=== PATIENT | female | born 1995 | race Two or more races ===

== ENCOUNTER 2021-02-16 10:27 | Inpatient (IN) | payer BC ==
[2021-02-16] MEDS ORDERED: Misoprostol 25 MCG (1/4 of 100 MCG) Tab VAG PRN (17:08)
[2021-02-16] MEDS ORDERED: Sodium Chloride 0.9% 10 ML Syringe FLUSH PRN (17:08)
[2021-02-16] MEDS ORDERED: Nalbuphine 10 MG/1 ML Vial IVPUSH PRN (17:08)
[2021-02-16] MEDS ORDERED: Ondansetron 4 MG/2 ML SDV IVPUSH PRN ×2 (17:08→20:47)
--- NOTE | 2021-02-16 17:08 | PCM.LDHP ---
L&D History of Present Illness - General Date of Service: 02/16/21 Admit Problem/Dx: Admission Diagnosis/Problem Admission Diagnosis/Problem Source of Information: Patient History Limitations: Reports: No Limitations - History of Present Illness Introduction:: Patient is a 25 y/o at 37 4/7 wks who presents for IOL for concerns of cholestasis of . Patient in clinic earlier today and noted for last week or so has had itching located on her soles. No other changes to explain symptoms. Reviewed concerns and did desire to proceed with IOL. Otherwise doing well currently - Related Data Allergies/Adverse Reactions: Allergies Allergy/AdvReac Type Severity Reaction Status Date / Time No Known Allergies Allergy Verified 02/16/21 18:14 Home Medications: Home Meds No122/Iron/Folic Acid [ Multi Tablet] 1 each PO DAILY 02/16/21 [History] Sertraline [Zoloft] 50 mg PO BEDTIME 02/16/21 [History] Past Medical History Psychiatric History: Reports: Anxiety - Past Surgical History HEENT Surgical History: Reports: Oral Surgery Social & Family History - Tobacco Use Tobacco Use Status *Q: Never Tobacco User - Alcohol Use Alcohol Use History: No - Recreational Drug Use Recreational Drug Use: No H&P Review of Systems - Review of Systems: Review Of Systems: See Below General: Reports: No Symptoms Pulmonary: Reports: No Symptoms Cardiovascular: Reports: No Symptoms Gastrointestinal: Reports: No Symptoms Genitourinary: Reports: No Symptoms Musculoskeletal: Reports: No Symptoms Skin: Reports: Pruritis (solar) Neurological: Reports: No Symptoms L&D Exam - Exam Exam: See Below - OB Specific Contraction Intensity: Irritability Movement: Active Heart Tones: Present Heart Tones per Min: 135 Heart Rate (FHR) Variability: Moderate (6-25 bmp) Presentation: Vertex - Nelson Score Nelson Score Cervix Position: Midposition Nelson Score Consistency: Medium Nelson Score Effacement: 51-70% Nelson Score Dilation: 3-4 cm Nelson Score Infant's Station: -2 Nelson Score Total: 7 - Exam General: Alert, Oriented, Cooperative Lungs: Clear to Auscultation, Normal Respiratory Effort Cardiovascular: Regular Rhythm GI/Abdominal Exam: Soft, Non-Tender Genitourinary: Normal external exam Back Exam: Normal Inspection Extremities: Normal Inspection Skin: Warm, Dry, Intact - Patient Data Result Diagrams: 02/16/21 17:30 02/16/21 17:30 - Problem List (1) Solar pruritus SNOMED Code(s): 284590463 ICD Code: L29.8 - OTHER PRURITUS Status: Acute Current Visit: Yes (2) 37 weeks gestation of SNOMED Code(s): 12505541 ICD Code: Z3A.37 - 37 WEEKS GESTATION OF Status: Acute Current Visit: Yes Problem List Initiated/Reviewed/Updated: Yes Assessment/Plan Comment:: Patient being induced for concerns of cholestasis. Bile acids drawn along with CMP Routine labs done GBS negative Cytotec to start IOL. Likely transition to pitocin after 1st dose Pain management per patient preference Anticipate
[2021-02-16] MEDS ORDERED: Oxytocin/Lactated Ringers 10 UNIT/1,000 ML BAG IV SCH ×2 (17:15)
[2021-02-16] MEDS ORDERED: fentaNYL 100 MCG/2 ML SDV EPIDUR PRN (20:47)
[2021-02-16] MEDS ORDERED: ePHEDrine 50 MG/ML SDV IVPUSH PRN (20:47)
[2021-02-16] MEDS ORDERED: Bupivacaine/fentaNYL/NS 100 ML Bag EPIDUR SCH (21:00)
--- NOTE | 2021-02-16 21:17 | PCM.PREANE ---
Preanesthetic Assessment - Procedure Proposed Procedure: Epidural - Anesthesia/Transfusion/Family Hx Anesthesia History: Prior Anesthesia Without Reaction Family History of Anesthesia Reaction: No Transfusion History: No Prior Transfusion(s) Intubation History: Unknown - Review of Systems General: No Symptoms Pulmonary: No Symptoms Cardiovascular: No Symptoms Gastrointestinal: No Symptoms Neurological: No Symptoms Other: Reports: None, Depression, Anxiety - Physical Assessment NPO Status Date: 02/16/21 NPO Status Time: 12:00 Vital Signs: Last Vital Signs Temp 37.5 C 02/16/21 19:45 Pulse 78 02/16/21 19:45 Resp 16 02/16/21 19:45 BP 111/75 02/16/21 19:45 Pulse Ox 97 02/16/21 19:45 Height: 1.57 m Weight: 63.503 kg ASA Class: 2 Mental Status: Alert & Oriented x3 Airway Class: Mallampati = 2 Dentition: Reports: Normal Dentition, Caries Thyro-Mental Finger Breadths: 3 Mouth Opening Finger Breadths: 3 ROM/Head Extension: Full Lungs: Clear to Auscultation, Normal Respiratory Effort Cardiovascular: Regular Rate, Regular Rhythm, No Murmurs - Lab Values: Laboratory Last Values WBC 6.88 K/mm3 (3.98-10.04) 02/16/21 17:30 RBC 3.88 M/mm3 (3.98-5.22) L 02/16/21 17:30 Hgb 11.3 gm/dl (11.2-15.7) 02/16/21 17:30 Hct 34.6 % (34.1-44.9) 02/16/21 17:30 MCV 89.2 fl (79.4-94.8) 02/16/21 17:30 MCH 29.1 pg (25.6-32.2) 02/16/21 17:30 MCHC 32.7 g/dl (32.2-35.5) 02/16/21 17:30 RDW Std Deviation 43.1 fL (36.4-46.3) 02/16/21 17:30 Plt Count 147 K/mm3 (182-369) L 02/16/21 17:30 MPV 12.0 fl (9.4-12.3) 02/16/21 17:30 Sodium 138 mEq/L (136-145) 02/16/21 17:30 Potassium 3.8 mEq/L (3.5-5.1) 02/16/21 17:30 Chloride 104 mEq/L (98-107) 02/16/21 17:30 Carbon Dioxide 20 mEq/L (21-32) L 02/16/21 17:30 Anion Gap 17.8 (5-15) H 02/16/21 17:30 BUN 8 mg/dL (7-18) 02/16/21 17:30 Creatinine 0.6 mg/dL (0.55-1.02) 02/16/21 17:30 Est Cr Clr Drug Dosing TNP 02/16/21 17:30 Estimated GFR (MDRD) > 60 mL/min (>60) 02/16/21 17:30 BUN/Creatinine Ratio 13.3 (14-18) L 02/16/21 17:30 Glucose 81 mg/dL (70-99) 02/16/21 17:30 Calcium 8.9 mg/dL (8.5-10.1) 02/16/21 17:30 Total Bilirubin 0.2 mg/dL (0.2-1.0) 02/16/21 17:30 AST 25 U/L (15-37) 02/16/21 17:30 ALT 26 U/L (14-59) 02/16/21 17:30 Alkaline Phosphatase 239 U/L (46-116) H 02/16/21 17:30 Total Protein 7.1 g/dl (6.4-8.2) 02/16/21 17:30 Albumin 2.7 g/dl (3.4-5.0) L 02/16/21 17:30 Globulin 4.4 gm/dL 02/16/21 17:30 Albumin/Globulin Ratio 0.6 (1-2) L 02/16/21 17:30 SARS-CoV-2 RNA (GORGE) Negative (NEGATIVE) 02/16/21 18:25 Blood Type O POSITIVE 02/16/21 17:30 Gel Antibody Screen Negative 02/16/21 17:30 Above labs reviewed and noted and within acceptable ranges to proceed with epidural. - Allergies Allergies/Adverse Reactions: Allergies Allergy/AdvReac Type Severity Reaction Status Date / Time No Known Allergies Allergy Verified 02/16/21 18:14 - Anesthesia Plan Pre-Op Medication Ordered: None - Acknowledgements Anesthesia Type Planned: Epidural Pt an Appropriate Candidate for the Planned Anesthesia: Yes Alternatives and Risks of Anesthesia Discussed w Pt/Guardian: Yes Pt/Guardian Understands and Agrees with Anesthesia Plan: Yes PreAnesthesia Questionnaire - HOME MEDS Home Medications: Home Meds Sertraline [Zoloft] 50 mg PO BEDTIME 02/16/21 [History] - CURRENT (IN HOUSE) MEDS Current Meds: Current Medications Ephedrine Sulfate (Ephedrine 50 Mg/Ml Sdv) 5 mg IVPUSH ASDIRECTED PRN PRN Reason: Hypotension Fentanyl (Fentanyl 100 Mcg/2 Ml Sdv) 100 mcg EPIDUR Q3H PRN PRN Reason: Pain Fentanyl/Bupivacaine HCl (Bupivacaine/Fentanyl/Ns 100 Ml Bag) 100 ml EPIDUR ASDIRECTED JESSICA Oxytocin/Lactated Ringer's (Pitocin In Lr 10 Units/1,000 Ml) 10 unit in 1,000 mls @ 12 mls/hr IV TITRATE JESSICA; Protocol Oxytocin/Lactated Ringer's (Pitocin In Lr 10 Units/1,000 Ml) 10 unit in 1,000 mls @ 500 mls/hr IV .CONTINUOUS JESSICA Lactated Ringer's (Ringers, Lactated) 1,000 mls @ 40 mls/hr IV ASDIRECTED JESSICA Miscellaneous Medication (Phenylephrine Hcl In 0.9% Nacl 1 Mg/10 Ml Syringe) 0.1 mg IVPUSH Q10M PRN PRN Reason: Hypotension Misoprostol (Misoprostol 25 Mcg (1/4 Of 100 Mcg) Tab) 25 mcg VAG Q4H PRN PRN Reason: cervical ripening Last Admin: 02/16/21 18:40 Dose: 25 mcg Documented by: Nalbuphine HCl (Nalbuphine 10 Mg/1 Ml Vial) 10 mg IVPUSH Q2H PRN PRN Reason: Pain Ondansetron HCl (Ondansetron 4 Mg/2 Ml Sdv) 4 mg IVPUSH Q4H PRN PRN Reason: Nausea/Vomiting Ondansetron HCl (Ondansetron 4 Mg/2 Ml Sdv) 4 mg IVPUSH ONETIME PRN PRN Reason: Nausea/Vomiting Sodium Chloride (Sodium Chloride 0.9% 10 Ml Syringe) 10 ml FLUSH ASDIRECTED PRN PRN Reason: Keep Vein Open
[2021-02-17] MEDS ORDERED: Bupivacaine 0.25% 10 ML SDV ONE
[2021-02-17] MEDS: Lactated Ringers 1,000 ML IV SCH ×3 (03:25→05:13)
--- NOTE | 2021-02-17 06:40 | PCM.PNLD ---
Labor Progress Note - VS & Meds Vital Signs: Last Vital Signs Temp 37.5 C 02/16/21 19:45 Pulse 78 02/16/21 19:45 Resp 16 02/16/21 19:45 BP 111/75 02/16/21 19:45 Pulse Ox 97 02/16/21 19:45 Active Medications: Current Medications Ephedrine Sulfate (Ephedrine 50 Mg/Ml Sdv) 5 mg IVPUSH ASDIRECTED PRN PRN Reason: Hypotension Fentanyl (Fentanyl 100 Mcg/2 Ml Sdv) 100 mcg EPIDUR Q3H PRN PRN Reason: Pain Last Admin: 02/17/21 03:58 Dose: 100 mcg Documented by: Fentanyl/Bupivacaine HCl (Bupivacaine/Fentanyl/Ns 100 Ml Bag) 100 ml EPIDUR ASDIRECTED JESSICA Last Admin: 02/17/21 03:58 Dose: 100 ml Documented by: Oxytocin/Lactated Ringer's (Pitocin In Lr 10 Units/1,000 Ml) 10 unit in 1,000 mls @ 12 mls/hr IV TITRATE JESSICA; Protocol Last Titration: 02/17/21 06:15 Dose: 8 munits/min, 48 mls/hr Documented by: Oxytocin/Lactated Ringer's (Pitocin In Lr 10 Units/1,000 Ml) 10 unit in 1,000 mls @ 500 mls/hr IV .CONTINUOUS JESSICA Lactated Ringer's (Ringers, Lactated) 1,000 mls @ 40 mls/hr IV ASDIRECTED JESSICA Last Admin: 02/17/21 05:13 Dose: 40 mls/hr Documented by: Miscellaneous Medication (Phenylephrine Hcl In 0.9% Nacl 1 Mg/10 Ml Syringe) 0.1 mg IVPUSH Q10M PRN PRN Reason: Hypotension Misoprostol (Misoprostol 25 Mcg (1/4 Of 100 Mcg) Tab) 25 mcg VAG Q4H PRN PRN Reason: cervical ripening Last Admin: 02/16/21 18:40 Dose: 25 mcg Documented by: Nalbuphine HCl (Nalbuphine 10 Mg/1 Ml Vial) 10 mg IVPUSH Q2H PRN PRN Reason: Pain Ondansetron HCl (Ondansetron 4 Mg/2 Ml Sdv) 4 mg IVPUSH Q4H PRN PRN Reason: Nausea/Vomiting Ondansetron HCl (Ondansetron 4 Mg/2 Ml Sdv) 4 mg IVPUSH ONETIME PRN PRN Reason: Nausea/Vomiting Sodium Chloride (Sodium Chloride 0.9% 10 Ml Syringe) 10 ml FLUSH ASDIRECTED PRN PRN Reason: Keep Vein Open - Uterine Contractions Uterine Monitoring Mode: External [place] Contraction Intensity: Moderate to Strong Uterine Resting Tone: Soft - Monitoring Monitor Mode: External Ultrasound Heart Rate (FHR) Baseline: 135 Heart Rate (FHR) Variability: Moderate (6-25 bmp) Accelerations: Present, 15x15 Decelerations: None Strip Review: Category I - Vaginal Exam Dilation (cm): 4-5 Effacement (Percent): 80 Station: -2 Cervical Position: Midposition - Labor Progress (Free Text) Labor Progress: Doing well. Received 1 dose of cytotec yesterday PM at 1845. Then was edwin frequently on own. In early AM hours was started on pitocin. Currently at 8. Comfortable with epidural in place. AROM just performed. Continue present management
--- NOTE | 2021-02-17 10:44 | PCM.DEL ---
L & D Note - General Info Date of Service: 02/17/21 - Delivery Note Labor: Induced by ARM, Induced by Oxytocin Cervical Ripening Method: Misoprostil Delivery Outcome: Livebirth Delivery Method: Spontaneous Vaginal Delivery-Single Infant Delivery Mode: Spontaneous Presentation: Left Occiput Anterior (GREGG) Nuchal Cord: None Anesthesia Type: Epidural Amniotic Fluid Description: Clear Episiotomy Type: None Laceration: 2nd Degree, Perineal Suture type: Vicryl Suture size: 2-0 Placenta: Intact, Spontaneous Cord: 3 Vessels Estimated Blood Loss: 200 Resuscitation Needed: Yes [place]: Bulb Syringe, Stimulated, Warmed, [place] Used Delivery Comments (Free Text/Narrative):: Patient found to be complete and began pushing. With maternal pushing effort head delivered from GREGG presentation. No nuchal cord present. With gentle downward traction the shoulders and body delivered. Infant placed on maternal abdomen. Cord clamped and cut. Cord blood obtained. Placenta allowed time to separate and expelled intact. Inspection of perineum showed a 2nd degree laceration which was repaired with a 2-0 Vicryl in the typical fashion - General Info Date of Service: 02/17/21 - Patient Data Vitals - Most Recent: Last Vital Signs Temp 37.5 C 02/16/21 19:45 Pulse 78 02/16/21 19:45 Resp 16 02/16/21 19:45 BP 111/75 02/16/21 19:45 Pulse Ox 97 02/16/21 19:45 Weight - Most Recent: 63.503 kg I&O - Last 24 Hours: Intake & Output 02/16/21 02/17/21 02/17/21 22:59 06:59 14:59 Intake Total 1999 Balance 1999 - Problem List & Annotations (1) Solar pruritus SNOMED Code(s): 606792074 Code(s): L29.8 - OTHER PRURITUS Status: Acute Current Visit: Yes (2) 37 weeks gestation of SNOMED Code(s): 87673550 Code(s): Z3A.37 - 37 WEEKS GESTATION OF Status: Acute Current Visit: Yes (3) Vaginal delivery SNOMED Code(s): 702151410 Code(s): O80 - ENCOUNTER FOR FULL-TERM UNCOMPLICATED DELIVERY Status: Acute Current Visit: Yes - Problem List Review Problem List Initiated/Reviewed/Updated: Yes - My Orders Last 24 Hours: My Active Orders 02/16/21 Dinner Regular Diet [DIET] 02/16/21 17:08 Patient Status [ADT] Routine Communication Order [RC] ASDIRECTED Communication Order [RC] ASDIRECTED Communication Order [RC] ASDIRECTED Notify Provider [RC] ASDIRECTED Notify Provider [RC] PRN Up ad Lynnette [RC] ASDIRECTED Nalbuphine [Nubain] 10 mg IVPUSH Q2H PRN Ondansetron [Zofran] 4 mg IVPUSH Q4H PRN Sodium Chloride 0.9% [Saline Flush] 10 ml FLUSH ASDIRECTED PRN miSOPROStoL [Cytotec] 25 mcg VAG Q4H PRN Electronic Heart Tones Internal [WOMSER] Per Unit Routine Peripheral IV Insertion Adult [OM.PC] Routine Resuscitation Status Routine 02/16/21 17:15 Lactated Ringers [Ringers, Lactated] 1,000 ml IV ASDIRECTED Oxytocin/Lactated Ringers [Pitocin in LR 10 Units/1,000 ML] 10 unit in 1,000 ml IV .CONTINUOUS Oxytocin/Lactated Ringers [Pitocin in LR 10 Units/1,000 ML] 10 unit in 1,000 ml IV TITRATE Medication Administration Instruction [OM.PC] ASDIRECTED 02/16/21 17:30 BILE ACIDS [REF] Routine HEP C VIRUS AB [REF] Routine - Assessment Assessment:: PPD#0 - Plan Plan:: * Routine cares * Breast feeding * Discharge home in 1-2 days
[2021-02-17] MEDS ORDERED: Acetaminophen 325 MG Tab PO PRN (12:07)
[2021-02-17] MEDS ORDERED: Docusate Sodium 100 MG Cap PO PRN (12:07)
[2021-02-17] MEDS: Ibuprofen 600 MG Tab PO PRN ×2 (13:28→21:46)
[2021-02-17] MEDS: Witch Hazel Medicated Pads 40/Jar TOP PRN (13:29)
[2021-02-17] MEDS: Benzocaine/Menthol 20%-0.5% Spray 56 GM Canister TOP PRN (13:29)
--- NOTE | 2021-02-18 06:44 | PCM.PNPP ---
- General Info Date of Service: 02/18/21 Functional Status: Reports: Pain Controlled, Tolerating Diet, Ambulating, Urinating - Review of Systems General: Reports: No Symptoms Pulmonary: Reports: No Symptoms Cardiovascular: Reports: No Symptoms Gastrointestinal: Reports: No Symptoms Genitourinary: Reports: No Symptoms Musculoskeletal: Reports: No Symptoms Neurological: Reports: No Symptoms - General Info Date of Service: 02/18/21 - Patient Data Vital Signs - Most Recent: Last Vital Signs Temp 36.6 C 02/18/21 03:21 Pulse 59 L 02/18/21 03:21 Resp 14 02/18/21 03:21 BP 108/72 02/18/21 03:21 Pulse Ox 98 02/18/21 03:21 Weight - Most Recent: 63.503 kg I&O - Last 24 Hours: Intake & Output 02/17/21 02/17/21 02/18/21 14:59 22:59 06:59 Intake Total 3360 150 Output Total 110 237 Balance 2276 -87 Med Orders - Current: Current Medications Acetaminophen (Acetaminophen 325 Mg Tab) 650 mg PO Q4H PRN PRN Reason: mild pain or fever Benzocaine/Menthol (Benzocaine/Menthol 20%-0.5% Connell 56 Gm Canister) 0 gm TOP ASDIRECTED PRN PRN Reason: Perineal Comfort Measure Last Admin: 02/17/21 13:29 Dose: 1 canister Documented by: Docusate Sodium (Docusate Sodium 100 Mg Cap) 100 mg PO BID PRN PRN Reason: Constipation Ibuprofen (Ibuprofen 600 Mg Tab) 600 mg PO Q6H PRN PRN Reason: Mild pain or fever Last Admin: 02/17/21 21:46 Dose: 600 mg Documented by: Allen [place]en[place] (Allen [place] Medicated Pads 40/Jar) 1 pad TOP ASDIRECTED PRN PRN Reason: Perineal Comfort Measure Last Admin: 02/17/21 13:29 Dose: 1 tub Documented by: Discontinued Medications Ephedrine Sulfate (Ephedrine 50 Mg/Ml Sdv) 5 mg IVPUSH ASDIRECTED PRN PRN Reason: Hypotension Fentanyl (Fentanyl 100 Mcg/2 Ml Sdv) 100 mcg EPIDUR Q3H PRN PRN Reason: Pain Last Admin: 02/17/21 03:58 Dose: 100 mcg Documented by: Fentanyl/Bupivacaine HCl (Bupivacaine/Fentanyl/Ns 100 Ml Bag) 100 ml EPIDUR ASDIRECTED JESSICA Last Admin: 02/17/21 03:58 Dose: 100 ml Documented by: Oxytocin/Lactated Ringer's (Pitocin In Lr 10 Units/1,000 Ml) 10 unit in 1,000 mls @ 12 mls/hr IV TITRATE JESSICA; Protocol Last Titration: 02/17/21 08:10 Dose: 8 munits/min, 48 mls/hr Documented by: Oxytocin/Lactated Ringer's (Pitocin In Lr 10 Units/1,000 Ml) 10 unit in 1,000 mls @ 500 mls/hr IV .CONTINUOUS JESSICA Lactated Ringer's (Ringers, Lactated) 1,000 mls @ 40 mls/hr IV ASDIRECTED JESSICA Last Admin: 02/17/21 05:13 Dose: 40 mls/hr Documented by: Miscellaneous Medication (Phenylephrine Hcl In 0.9% Nacl 1 Mg/10 Ml Syringe) 0.1 mg IVPUSH Q10M PRN PRN Reason: Hypotension Misoprostol (Misoprostol 25 Mcg (1/4 Of 100 Mcg) Tab) 25 mcg VAG Q4H PRN PRN Reason: cervical ripening Last Admin: 02/16/21 18:40 Dose: 25 mcg Documented by: Nalbuphine HCl (Nalbuphine 10 Mg/1 Ml Vial) 10 mg IVPUSH Q2H PRN PRN Reason: Pain Ondansetron HCl (Ondansetron 4 Mg/2 Ml Sdv) 4 mg IVPUSH Q4H PRN PRN Reason: Nausea/Vomiting Ondansetron HCl (Ondansetron 4 Mg/2 Ml Sdv) 4 mg IVPUSH ONETIME PRN PRN Reason: Nausea/Vomiting Sodium Chloride (Sodium Chloride 0.9% 10 Ml Syringe) 10 ml FLUSH ASDIRECTED PRN PRN Reason: Keep Vein Open - Interaction Infant Disposition, : [place] in Room with Family Interaction: Holding Feeding: Breastfed Infant; Nursed Well Support Person: - Recovery Exam Fundal Tone: Firm Fundal Level: At Umbilicus Fundal Placement: Midline Lochia Amount: Small Lochia Color: Rubra/Red Perineum Description: Other (see below) Other Perinuem Description: 2nd degree laceration with repair Episiotomy/Laceration: Approximated Bladder Status: Voiding Urinary Elimination: Voided - Exam General: Alert, Oriented, Cooperative GI/Abdominal Exam: Soft, Non-Tender - Problem List & Annotations (1) Solar pruritus SNOMED Code(s): 867792437 Code(s): L29.8 - OTHER PRURITUS Status: Acute Current Visit: Yes (2) 37 weeks gestation of SNOMED Code(s): 99395862 Code(s): Z3A.37 - 37 WEEKS GESTATION OF Status: Acute Current Visit: Yes (3) Vaginal delivery SNOMED Code(s): 199160429 Code(s): O80 - ENCOUNTER FOR FULL-TERM UNCOMPLICATED DELIVERY Status: Acute Current Visit: Yes - Problem List Review Problem List Initiated/Reviewed/Updated: Yes - My Orders Last 24 Hours: My Active Orders 02/17/21 Lunch Regular Diet [DIET] 02/17/21 12:07 Acetaminophen [TylenoL] 650 mg PO Q4H PRN Benzocaine/Menthol [Dermoplast Pain Relief Connell] See Dose Instructions TOP ASDIRECTED PRN Docusate Sodium [Colace] 100 mg PO BID PRN Ibuprofen [Motrin] 600 mg PO Q6H PRN witch Valeria [Tucks] 1 pad TOP ASDIRECTED PRN Heat Therapy [OM.PC] PRN 02/17/21 12:07 Activity as Tolerated [RC] PER UNIT ROUTINE Vital Signs [RC] ,,15,21 Assess Lochia [WOMSER] Per Unit Routine Assess Uterine Involution [WOMSER] Per Unit Routine Breast Pump [WOMSER] Per Unit Routine Ice Therapy [OM.PC] Per Unit Routine Perineal Care [OM.PC] Per Unit Routine Peripheral IV Discontinue [OM.PC] Routine Sitz Bath [OM.PC] Per Unit Routine 02/18/21 12:07 Heat Therapy [OM.PC] PRN - Assessment Assessment:: PPD#1 - Plan Plan:: * Routine cares * Breast feeding * Discharge home tomorrow
--- NOTE | 2021-02-18 07:31 | PCM48HPAN ---
Post Anesthesia Note - EVALUATION WITHIN 48HRS OF ANESTHETIC Vital Signs in Normal Range: Yes Patient Participated in Evaluation: Yes Respiratory Function Stable: Yes Airway Patent: Yes Cardiovascular Function Stable: Yes Hydration Status Stable: Yes Pain Control Satisfactory: Yes Nausea and Vomiting Control Satisfactory: Yes Mental Status Recovered: Yes Vital Signs: Last Vital Signs Temp 97.9 F 02/18/21 03:21 Pulse 59 L 02/18/21 03:21 Resp 14 02/18/21 03:21 BP 108/72 02/18/21 03:21 Pulse Ox 98 02/18/21 03:21
[2021-02-18] MEDS: Ibuprofen 600 MG Tab PO PRN ×2 (09:05→20:21)
[2021-02-18] MEDS: Witch Hazel Medicated Pads 40/Jar TOP PRN (15:30)
--- NOTE | 2021-02-19 06:24 | PCM.PNPP ---
- General Info Date of Service: 02/19/21 Functional Status: Reports: Pain Controlled, Tolerating Diet, Urinating - Review of Systems General: Reports: No Symptoms Pulmonary: Reports: No Symptoms Cardiovascular: Reports: No Symptoms Gastrointestinal: Reports: No Symptoms Genitourinary: Reports: No Symptoms Musculoskeletal: Reports: No Symptoms Neurological: Reports: No Symptoms - Patient Data Vital Signs - Most Recent: Last Vital Signs Temp 36.4 C 02/19/21 04:02 Pulse 67 02/19/21 04:02 Resp 14 02/19/21 04:02 BP 107/73 02/19/21 04:02 Pulse Ox 98 02/19/21 04:02 Weight - Most Recent: 63.503 kg I&O - Last 24 Hours: Intake & Output 02/18/21 02/18/21 02/19/21 14:59 22:59 06:59 Intake Total 120 120 Balance 120 120 Med Orders - Current: Current Medications Acetaminophen (Acetaminophen 325 Mg Tab) 650 mg PO Q4H PRN PRN Reason: mild pain or fever Benzocaine/Menthol (Benzocaine/Menthol 20%-0.5% [place] 56 Gm Canister) 0 gm TOP ASDIRECTED PRN PRN Reason: Perineal Comfort Measure Last Admin: 02/17/21 13:29 Dose: 1 canister Documented by: Docusate Sodium (Docusate Sodium 100 Mg Cap) 100 mg PO BID PRN PRN Reason: Constipation Ibuprofen (Ibuprofen 600 Mg Tab) 600 mg PO Q6H PRN PRN Reason: Mild pain or fever Last Admin: 02/18/21 20:21 Dose: 600 mg Documented by: Allen [place]en[place] (Allen [place] Medicated Pads 40/Jar) 1 pad TOP ASDIRECTED PRN PRN Reason: Perineal Comfort Measure Last Admin: 02/18/21 15:30 Dose: 1 tub Documented by: Discontinued Medications Ephedrine Sulfate (Ephedrine 50 Mg/Ml Sdv) 5 mg IVPUSH ASDIRECTED PRN PRN Reason: Hypotension Fentanyl (Fentanyl 100 Mcg/2 Ml Sdv) 100 mcg EPIDUR Q3H PRN PRN Reason: Pain Last Admin: 02/17/21 03:58 Dose: 100 mcg Documented by: Fentanyl/Bupivacaine HCl (Bupivacaine/Fentanyl/Ns 100 Ml Bag) 100 ml EPIDUR ASDIRECTED JESSICA Last Admin: 02/17/21 03:58 Dose: 100 ml Documented by: Oxytocin/Lactated Ringer's (Pitocin In Lr 10 Units/1,000 Ml) 10 unit in 1,000 mls @ 12 mls/hr IV TITRATE JESSICA; Protocol Last Titration: 02/17/21 08:10 Dose: 8 munits/min, 48 mls/hr Documented by: Oxytocin/Lactated Ringer's (Pitocin In Lr 10 Units/1,000 Ml) 10 unit in 1,000 mls @ 500 mls/hr IV .CONTINUOUS JESSICA Lactated Ringer's (Ringers, Lactated) 1,000 mls @ 40 mls/hr IV ASDIRECTED JESSICA Last Admin: 02/17/21 05:13 Dose: 40 mls/hr Documented by: Miscellaneous Medication (Phenylephrine Hcl In 0.9% Nacl 1 Mg/10 Ml Syringe) 0.1 mg IVPUSH Q10M PRN PRN Reason: Hypotension Misoprostol (Misoprostol 25 Mcg (1/4 Of 100 Mcg) Tab) 25 mcg VAG Q4H PRN PRN Reason: cervical ripening Last Admin: 02/16/21 18:40 Dose: 25 mcg Documented by: Nalbuphine HCl (Nalbuphine 10 Mg/1 Ml Vial) 10 mg IVPUSH Q2H PRN PRN Reason: Pain Ondansetron HCl (Ondansetron 4 Mg/2 Ml Sdv) 4 mg IVPUSH Q4H PRN PRN Reason: Nausea/Vomiting Ondansetron HCl (Ondansetron 4 Mg/2 Ml Sdv) 4 mg IVPUSH ONETIME PRN PRN Reason: Nausea/Vomiting Sodium Chloride (Sodium Chloride 0.9% 10 Ml Syringe) 10 ml FLUSH ASDIRECTED PRN PRN Reason: Keep Vein Open - Interaction Disposition, : in Room with Family Infant Interaction: Holding Infant Infant Feeding: Breastfed ; Nursed Well Support Person: - Recovery Exam Fundal Tone: Firm Fundal Level: 2 Fingerbreadths Below Umbilicus Fundal Placement: Midline Lochia Amount: Small Lochia Color: Rubra/Red Perineum Description: Other (see below) Other Perinuem Description: 2nd degree laceration with repair Episiotomy/Laceration: Approximated Bladder Status: Voiding Urinary Elimination: Voided - Exam General: Alert, Oriented, Cooperative GI/Abdominal Exam: Soft, Non-Tender - Problem List & Annotations (1) Solar pruritus SNOMED Code(s): 163323184 Code(s): L29.8 - OTHER PRURITUS Status: Acute Current Visit: Yes (2) 37 weeks gestation of SNOMED Code(s): 87865808 Code(s): Z3A.37 - 37 WEEKS GESTATION OF Status: Acute Current Visit: Yes (3) Vaginal delivery SNOMED Code(s): 523298575 Code(s): O80 - ENCOUNTER FOR FULL-TERM UNCOMPLICATED DELIVERY Status: Acute Current Visit: Yes - Problem List Review Problem List Initiated/Reviewed/Updated: Yes - My Orders Last 24 Hours: My Active Orders 02/18/21 12:07 Heat Therapy [OM.PC] PRN 02/19/21 06:23 Ready for Discharge [RC] PER UNIT ROUTINE - Assessment Assessment:: PPD#2 - Plan Plan:: * Routine cares * Breast feeding * Discharge home today
--- NOTE | 2021-02-19 06:24 | PCM.DCSUM1 ---
Discharge Summary - Discharge Data Discharge Date: 02/19/21 Discharge Disposition: Home, Self-Care 01 Condition: Good - Referral to Home Health Primary Care Physician: Mel Whatley MD - Discharge Diagnosis/Problem(s) (1) Solar pruritus SNOMED Code(s): 593819392 ICD Code: L29.8 - OTHER PRURITUS Status: Acute Current Visit: Yes (2) 37 weeks gestation of SNOMED Code(s): 71161362 ICD Code: Z3A.37 - 37 WEEKS GESTATION OF Status: Acute Current Visit: Yes (3) Vaginal delivery SNOMED Code(s): 450937079 ICD Code: O80 - ENCOUNTER FOR FULL-TERM UNCOMPLICATED DELIVERY Status: Acute Current Visit: Yes - Patient Summary/Data Complications: None Consults: None Recommended Follow-up Testing/Procedures: Follow up in 3 weeks for check Hospital Course: 25 y/o at 37 4/7 wks who presented to clinic with concerns of solar pruritus for 1 week. Bile acids drawn, but recommended proceeding with IOL. Done with cytotec, pitocin, AROM. Progressed well. Underwent an uncomplicated . Discharged home on PPD#2 - Patient Instructions Diet: Regular Diet as Tolerated Activity: As Tolerated Activity, Other: Pelvic rest for 6 weeks Driving: May Drive Today Showering/Bathing: May Shower Showering/Bathing, Other: May Bathe Notify Provider of: Fever, Increased Pain, Swelling and Redness, Drainage, Nausea and/or Vomiting - Discharge Plan *PRESCRIPTION DRUG MONITORING PROGRAM REVIEWED*: No *COPY OF PRESCRIPTION DRUG MONITORING REPORT IN PATIENT ARABELLA: No Home Medications: Home Meds No122/Iron/Folic Acid [ Multi Tablet] 1 each PO DAILY 02/16/21 [History] Sertraline [Zoloft] 50 mg PO BEDTIME 02/16/21 [History] Docusate Sodium [Colace] 100 mg PO BID PRN cap 02/19/21 [Rx] Ibuprofen [Motrin] 600 mg PO Q6H PRN tablet 02/19/21 [Rx] Patient Handouts: and Self-Care, Care After Vaginal Delivery Referrals: Mel Whatley MD [Primary Care Provider] - (3 weeks for check ) - Discharge Summary/Plan Comment DC Time >30 min.: No - Patient Data Vitals - Most Recent: Last Vital Signs Temp 36.4 C 02/19/21 04:02 Pulse 67 02/19/21 04:02 Resp 14 02/19/21 04:02 BP 107/73 02/19/21 04:02 Pulse Ox 98 02/19/21 04:02 Weight - Most Recent: 63.503 kg I&O - Last 24 hours: Intake & Output 02/18/21 02/18/21 02/19/21 14:59 22:59 06:59 Intake Total 120 120 Balance 120 120 Med Orders - Current: Current Medications Acetaminophen (Acetaminophen 325 Mg Tab) 650 mg PO Q4H PRN PRN Reason: mild pain or fever Benzocaine/Menthol (Benzocaine/Menthol 20%-0.5% [place] 56 Gm Canister) 0 gm TOP ASDIRECTED PRN PRN Reason: Perineal Comfort Measure Last Admin: 02/17/21 13:29 Dose: 1 canister Documented by: Docusate Sodium (Docusate Sodium 100 Mg Cap) 100 mg PO BID PRN PRN Reason: Constipation Ibuprofen (Ibuprofen 600 Mg Tab) 600 mg PO Q6H PRN PRN Reason: Mild pain or fever Last Admin: 02/18/21 20:21 Dose: 600 mg Documented by: Allen Monten[place] (Allen [place]en[place] Medicated Pads 40/Jar) 1 pad TOP ASDIRECTED PRN PRN Reason: Perineal Comfort Measure Last Admin: 02/18/21 15:30 Dose: 1 tub Documented by: Discontinued Medications Ephedrine Sulfate (Ephedrine 50 Mg/Ml Sdv) 5 mg IVPUSH ASDIRECTED PRN PRN Reason: Hypotension Fentanyl (Fentanyl 100 Mcg/2 Ml Sdv) 100 mcg EPIDUR Q3H PRN PRN Reason: Pain Last Admin: 02/17/21 03:58 Dose: 100 mcg Documented by: Fentanyl/Bupivacaine HCl (Bupivacaine/Fentanyl/Ns 100 Ml Bag) 100 ml EPIDUR ASDIRECTED JESSICA Last Admin: 02/17/21 03:58 Dose: 100 ml Documented by: Oxytocin/Lactated Ringer's (Pitocin In Lr 10 Units/1,000 Ml) 10 unit in 1,000 mls @ 12 mls/hr IV TITRATE JESSICA; Protocol Last Titration: 02/17/21 08:10 Dose: 8 munits/min, 48 mls/hr Documented by: Oxytocin/Lactated Ringer's (Pitocin In Lr 10 Units/1,000 Ml) 10 unit in 1,000 mls @ 500 mls/hr IV .CONTINUOUS [facility] Lactated Ringer's (Ringers, Lactated) 1,000 mls @ 40 mls/hr IV ASDIRECTED [facility] Last Admin: 02/17/21 05:13 Dose: 40 mls/hr Documented by: Miscellaneous Medication (Phenylephrine Hcl In 0.9% Nacl 1 Mg/10 Ml Syringe) 0.1 mg IVPUSH Q10M PRN PRN Reason: Hypotension Misoprostol (Misoprostol 25 Mcg (1/4 Of 100 Mcg) Tab) 25 mcg VAG Q4H PRN PRN Reason: cervical ripening Last Admin: 02/16/21 18:40 Dose: 25 mcg Documented by: Nalbuphine HCl (Nalbuphine 10 Mg/1 Ml Vial) 10 mg IVPUSH Q2H PRN PRN Reason: Pain Ondansetron HCl (Ondansetron 4 Mg/2 Ml Sdv) 4 mg IVPUSH Q4H PRN PRN Reason: Nausea/Vomiting Ondansetron HCl (Ondansetron 4 Mg/2 Ml Sdv) 4 mg IVPUSH ONETIME PRN PRN Reason: Nausea/Vomiting Sodium Chloride (Sodium Chloride 0.9% 10 Ml Syringe) 10 ml FLUSH ASDIRECTED PRN PRN Reason: Keep Vein Open
[2021-02-19] MEDS: Benzocaine/Menthol 20%-0.5% Spray 56 GM Canister TOP PRN (11:31)
== END 2021-02-19 11:35 | disposition home or self-care (01) | DRG 560 ==
LOC: JD.OB 10:27 → OBSVTOIN 02-17 10:27 → JD.OB 02-17 10:28
PROVIDERS: ADMIT Obstetrics & Gynecology; ATTEND Obstetrics & Gynecology
PROC: 10E0XZZ Delivery of Products of Conception, External Approach (ICD-10-PCS; principal; 2021-02-17)
PROC: 10907ZC Drainage of Amniotic Fluid, Therapeutic from Products of Conception, Via Natural or Artificial Opening (ICD-10-PCS; 2021-02-17)
PROC: 3E0P7VZ Introduction of Hormone into Female Reproductive, Via Natural or Artificial Opening (ICD-10-PCS; 2021-02-17)
PROC: 3E033VJ Introduction of Other Hormone into Peripheral Vein, Percutaneous Approach (ICD-10-PCS; 2021-02-17)
PROC: 0KQM0ZZ Repair Perineum Muscle, Open Approach (ICD-10-PCS; 2021-02-17)
PROC: 3E0R3BZ Introduction of Anesthetic Agent into Spinal Canal, Percutaneous Approach (ICD-10-PCS; 2021-02-17)
DX: O26.893 Other specified pregnancy related conditions, third trimester (principal); L29.9 Pruritus, unspecified; Z37.0 Single live birth; O99.344 Other mental disorders complicating childbirth; F41.9 Anxiety disorder, unspecified; Z20.822 Contact with and (suspected) exposure to COVID-19; Z3A.37 37 weeks gestation of pregnancy; O70.1 Second degree perineal laceration during delivery
CPT/HCPCS: 01967; 36415; 51702; 59025; 59409; 80053; 82239; 85027; 86592; 86803; 86850; 86900; 86901; A9270-GY; J2590; J3010; J3490; J7120; U0002

== ENCOUNTER 2023-07-27 01:24 | Inpatient (IN) | payer BC ==
[2023-07-27] MEDS ORDERED: Sodium Chloride 0.9% 10 ML Syringe FLUSH PRN (19:25)
[2023-07-27] MEDS ORDERED: Ondansetron 4 MG/2 ML SDV IVPUSH PRN (19:25)
[2023-07-27] MEDS ORDERED: Nalbuphine HCl 10 MG/ 1ML Amp IVPUSH PRN (19:25)
[2023-07-27] MEDS ORDERED: Lidocaine 1% 50 ML MDV INJECT ONE (19:25)
[2023-07-27] MEDS ORDERED: Oxytocin/Lactated Ringers 10 UNIT/1,000 ML BAG IV SCH ×2 (19:30)
[2023-07-27 19:51] LABS: BASOPHILS PERCENT AUTO 0.2 % (0.0-1.0); EOSINOPHILS PERCENT AUTO 0.5 % (0.0-6.0); HEMATOCRIT 33.8 % (37.0-47.0); HEMOGLOBIN 11.3 gm/dl (12.0-16.0); IMMATURE GRAN ABSOLUTE AUTO 0.04 K/mm3 (0.00-0.05); IMMATURE GRAN PERCENT AUTO 0.5 % (0.0-0.4); LYMPHOCYTES ABSOLUTE AUTO 2.7 K/mm3 (1.0-4.8); LYMPHOCYTES PERCENT AUTO 32.2 % (24.0-44.0); MEAN CORPUSCULAR HEMOGLOBIN 29.2 pg (28.0-32.0); MEAN CORPUSCULAR HGB CONC 33.4 g/dl (32.0-36.0); MEAN CORPUSCULAR VOLUME 87.3 fl (83.0-99.0); MEAN PLATELET VOLUME 12.2 fl (9.4-12.3); MONOCYTES ABSOLUTE AUTO 0.6 K/mm3 (0.0-0.8); MONOCYTES PERCENT AUTO 7.7 % (0.0-8.0); NEUTROPHILS ABSOLUTE AUTO 4.9 K/mm3 (1.8-7.7); NEUTROPHILS PERCENT AUTO 58.9 % (41.0-71.0); PLATELET COUNT,PLT 198 K/mm3 (150-400); RED BLOOD CELL COUNT 3.87 M/mm3 (4.10-5.30); WHITE BLOOD CELL COUNT,WBC 8.35 K/mm3 (3.9-11.3)
[2023-07-27] MEDS: Lactated Ringers 1,000 ML IV SCH ×2 (19:58→23:09)
[2023-07-27] MEDS ORDERED: Sodium Chloride 0.9% 10 ML Syringe FLUSH SCH (21:00)
[2023-07-27] MEDS ORDERED: fentaNYL 100 MCG/2 ML SDV EPIDUR PRN (22:48)
[2023-07-27] MEDS ORDERED: diphenhydrAMINE 50 MG/ML SDV IVPUSH PRN (22:48)
[2023-07-27] MEDS ORDERED: ePHEDrine 50 MG/ML SDV IVPUSH PRN (22:48)
[2023-07-27] MEDS ORDERED: Bupivacaine/fentaNYL/NS 100 ML Bag EPIDUR PRN (22:48)
[2023-07-27] MEDS ORDERED: Ropivacaine 200 MG in Premix Bag 1 BAG EPIDUR SCH (23:00)
[2023-07-28] MEDS ORDERED: Acetaminophen 325 MG Tab PO PRN (02:09)
[2023-07-28] MEDS ORDERED: Docusate Sodium 100 MG Cap PO PRN (02:09)
[2023-07-28] MEDS ORDERED: Witch Hazel Medicated Pads 40/Jar TOP PRN (02:09)
[2023-07-28] MEDS ORDERED: Benzocaine/Menthol 20%-0.5% Spray 78 GM Cannister TOP PRN (02:09)
[2023-07-28] MEDS: Ibuprofen 600 MG Tab PO PRN ×3 (06:14→17:59)
[2023-07-29] MEDS: Ibuprofen 600 MG Tab PO PRN ×2 (05:56→11:14)
== END 2023-07-29 13:30 | disposition home or self-care (01) | DRG 560 ==
LOC: JD.OB 01:24 → UNDOADMOB 19:14 → JD.OB 19:14 → OBSVTOIN 07-28 01:24 → JD.OB 07-28 01:45
PROVIDERS: ADMIT Pediatrics; ATTEND Obstetrics & Gynecology
PROC: 10E0XZZ Delivery of Products of Conception, External Approach (ICD-10-PCS; principal; 2023-07-28)
PROC: 3E0R3BZ Introduction of Anesthetic Agent into Spinal Canal, Percutaneous Approach (ICD-10-PCS; 2023-07-28)
PROC: 00HU33Z Insertion of Infusion Device into Spinal Canal, Percutaneous Approach (ICD-10-PCS; 2023-07-28)
PROC: 10907ZC Drainage of Amniotic Fluid, Therapeutic from Products of Conception, Via Natural or Artificial Opening (ICD-10-PCS; 2023-07-28)
DX: O26.643 Intrahepatic cholestasis of pregnancy, third trimester (principal); Z3A.37 37 weeks gestation of pregnancy; Z37.0 Single live birth; K83.1 Obstruction of bile duct; O69.81X0 Labor and delivery complicated by cord around neck, without compression, not applicable or unspecified; O99.72 Diseases of the skin and subcutaneous tissue complicating childbirth; O99.344 Other mental disorders complicating childbirth; L29.8 Other pruritus; F41.9 Anxiety disorder, unspecified
CPT/HCPCS: 36415; 51702; 59020; 59409; 85025; 86592; 86850; 86900; 86901; A9270-GY; J2590; J2795; J7120